=== PATIENT | male | born 1955 | race Caucasian/White ===

== ENCOUNTER 2021-08-25 17:17 | Inpatient (IN) ==
[2021-08-25] MEDS ORDERED: HEPARIN SODIUM INJ 5000 UNITS IVP ONE (19:07)
[2021-08-25] MEDS: HEPARIN SODIUM IN D5W 25,000 UNITS/500 ML BAG IV PRN (19:29)
[2021-08-25 19:55] LABS: BASOPHILS # (AUTO) 0.1 X10^3/uL (0.0-0.1); BASOPHILS % (AUTO) 0.7 % (0.2-1.0); EOSINOPHILS # (AUTO) 0.3 x10^3/uL (0.0-0.2); EOSINOPHILS % (AUTO) 2.9 % (0.9-2.9); HEMATOCRIT 40.4 % (42.0-54.0); HEMOGLOBIN 13.8 g/dL (13.5-18.0); LYMPHOCYTES # (AUTO) 2.1 X10^3/uL (1.3-2.9); LYMPHOCYTES % (AUTO) 23.4 % (21.0-51.0); MEAN CORPUSCULAR HEMOGLOBIN 28.8 pg (27.0-34.0); MEAN CORPUSCULAR HGB CONC 34.1 g/dL (33.0-35.0); MEAN CORPUSCULAR VOLUME 84.3 fL (80.0-100.0); MEAN PLATELET VOLUME 7.6 fL (7.4-11.0); MONOCYTES # (AUTO) 0.6 x10^3/uL (0.3-0.8); MONOCYTES % (AUTO) 6.4 % (0.0-13.0); NEUTROPHILS # (AUTO) 5.8 x10^3/uL (2.2-4.8); NEUTROPHILS % (AUTO) 66.6 % (42.0-75.0); RED BLOOD COUNT 4.79 X10^6/uL (4.7-6.0); RED CELL DISTRIBUTION WIDTH 13.8 % (11.6-16.5); WHITE BLOOD COUNT 8.8 X10^3/uL (3.6-10.0)
[2021-08-25 20:02] LABS: ALANINE AMINOTRANSFERASE 26 Units/L (12-78); ALBUMIN 3.2 g/dL (3.4-5.0); ALKALINE PHOSPHATASE 93 Units/L (46-116); ASPARTATE AMINO TRANSFERASE 21 Units/L (15-37); BLOOD UREA NITROGEN 20 mg/dL (7-18); CALCIUM 8.1 mg/dL (8.5-10.1); CARBON DIOXIDE 25.3 mmol/L (21-32); CHLORIDE 102 mmol/L (98-107); COR CA(FOR HYPOALB) 8.7 mg/dL (8.5-10.1); CREATININE 1.04 mg/dL (0.70-1.30); SODIUM 136 mmol/L (136-145); TOTAL PROTEIN 7.2 g/dL (6.4-8.2); eGFR NON BLACK RACES > 60 (>60)
[2021-08-25 22:09] VITALS: BMI 36.6
[2021-08-26 05:55] LABS: BASOPHILS % (AUTO) 0.7 % (0.2-1.0); EOSINOPHILS # (AUTO) 0.3 x10^3/uL (0.0-0.2); EOSINOPHILS % (AUTO) 4.8 % (0.9-2.9); HEMATOCRIT 40.9 % (42.0-54.0); HEMOGLOBIN 13.7 g/dL (13.5-18.0); LYMPHOCYTES % (AUTO) 31.5 % (21.0-51.0); MEAN CORPUSCULAR HEMOGLOBIN 28.3 pg (27.0-34.0); MEAN CORPUSCULAR HGB CONC 33.5 g/dL (33.0-35.0); MEAN CORPUSCULAR VOLUME 84.7 fL (80.0-100.0); MEAN PLATELET VOLUME 7.5 fL (7.4-11.0); MONOCYTES # (AUTO) 0.5 x10^3/uL (0.3-0.8); MONOCYTES % (AUTO) 7.8 % (0.0-13.0); NEUTROPHILS # (AUTO) 3.6 x10^3/uL (2.2-4.8); NEUTROPHILS % (AUTO) 55.2 % (42.0-75.0); RED BLOOD COUNT 4.83 X10^6/uL (4.7-6.0); RED CELL DISTRIBUTION WIDTH 13.8 % (11.6-16.5); WHITE BLOOD COUNT 6.5 X10^3/uL (3.6-10.0)
[2021-08-26 06:08] LABS: ALANINE AMINOTRANSFERASE 22 Units/L (12-78); ALBUMIN 2.9 g/dL (3.4-5.0); ALKALINE PHOSPHATASE 88 Units/L (46-116); ASPARTATE AMINO TRANSFERASE 17 Units/L (15-37); BLOOD UREA NITROGEN 19 mg/dL (7-18); CARBON DIOXIDE 26.2 mmol/L (21-32); CHLORIDE 103 mmol/L (98-107); COR CA(FOR HYPOALB) 8.9 mg/dL (8.5-10.1); COR NA(FOR HYPERGLY) 138 mmol/L (136-145); CREATININE 0.94 mg/dL (0.70-1.30); SODIUM 137 mmol/L (136-145); TOTAL PROTEIN 6.8 g/dL (6.4-8.2); eGFR NON BLACK RACES > 60 (>60)
[2021-08-26] MEDS ORDERED: HEPARIN SODIUM INJ 5000 UNITS IVP ONE (08:54)
--- NOTE | 2021-08-26 11:45 | DR.H&P ---
H&P - History & Physical for Day of: H&P Date: 08/25/21 - Chief Complaint Chief Complaint: RIGHT KNEE SWELLING, SHORTNESS OF BREATH, CHRONIC COUGH - History of Present Illness History of Present Illness: IS A 66 YEAR OLD PATIENT OF OURS. HE PRESENTED TO THE OFFICE WITH COMPLAINTS OF RIGHT LOWER EXTREMITY SWELLING. HE ALSO COMPLAINED OF SHORTNESS OF BREATH AND CHRONIC COUGH. EXAMINATION REVEALED ERYTHEMA AND NON-PITTING EDEMA OF THE RIGHT LEG, FROM THE KNEE TO THE ANKLE. PATIENT DENIES PAIN TO LEG OR CHEST. PMH INCLUDES: GLAUCOMA, HTN, PE, ARTHRITIS, RIGHT KNEE REPLACEMENT. HE WAS SENT FOR AN OUTPATIENT RIGHT LOWER EXTREMITY VENOUS DOPPLER. IT REVEALED: EXAM POSITIVE FOR DEEP VENOUS THROMBOSIS INVOLVING THE SUPERFICIAL FEMORAL, POPLITEAL, AND POSTERIOR TIBIAL VEINS ON THE RIGHT. A CHEST CTA WAS ALSO OBTAINED AND REVEALED: LARGE PULMONARY EMBOLUS WITHIN THE DISTAL RIGHT MAIN PULMONARY ARTERIES. OF THE RIGHT UPPER, RIGHT MIDDLE, AND RIGHT LOWER LOBES. SEGMENTAL AND SUBSEGMENTAL EMBOLI ARE SEEN WITHIN THE LEFT UPPER LOBE AND THE LEFT LOWER LOBE. WE ADMITTED PATIENT TO THE HOSPITAL FOR FURTHER EVALUATION AND TREATMENT. HE WAS STARTED ON A HEPARIN DRIP. WE WILL OBTAIN AN ECHOCARDIOGRAM. WE WILL THEN CONSULT SYSTEMS ANALYST AT [facility] FOR FURTHER TREATMENT PLANS AND RECOMMENDATIONS. TIME SPENT ON CLINICAL ASSESSMENT, REVIEWING LABS AND IMAGING, DECISION MAKING, AND DOCUMENTATION GREATER THAN 75 MINUTES. - Past Medical History Past Medical History: Arthritis, Hypertension Additional Medical History: GLAUCOMA, PE - Past Surgical History Surgical History: Joint Replacement, Ortho Surgery Additional Surgical History: RIGHT KNEE REPLACEMENT - Family History Family Medical History: Cancer, Hypertension - Social History Alcohol Use: None Drug Use: None - Medications Home Medications: No Known Drug Allergies [NKDA] Allergy (Verified 08/25/21 18:59) CONTINUE taking the following medications apixaban [Eliquis] 10 mg PO BID 08/25/21 [History] fosinopril 20 mg PO BID 08/25/21 [History] hydrochlorothiazide 25 mg PO QAM 08/25/21 [History] travoprost 1 drp OPHTHALMIC (EYE) QHS 08/25/21 [History] - Review of Systems Constitutional: No Symptoms Reported Eyes: No Symptoms Reported ENT: No Symptoms Reported Respiratory: Cough, Shortness of Breath Cardiovascular: No Symptoms Reported Gastrointestinal: No Symptoms Reported Genitourinary: No Symptoms Reported Musculoskeletal: See HPI Skin: Other (RIGHT LOWER EXTREMITY REDNESS AND SWELLING ) Neurological: No Symptoms Reported - Physical Exam Vital Signs: Temperature 97.7 F Pulse Rate 67 Respiratory Rate 24 Blood Pressure 155/78 O2 Sat by Pulse Oximetry 98 Oriented: Normal Eyes: Normal Ear: Normal Nose: Normal Throat: Normal Respiratory: Diminished Throughout Cardiovascular: Normal : Normal Auscultation: Bowel Sounds: Normal Palpation: Normal Tenderness: Normal Skin: Red (RIGHT LOWER EXTREMITY ), Tender, Hot Musculoskeletal: Right, Leg, Swelling, Tender Psychiatric: Normal Mood Description: Calm Affect: Normal Speech Pattern: Clear - Assessment/Plan (1) Right leg DVT Qualifiers: Affected thrombotic vein of extremity: other lower extremity vein Status: Acute Plan: ADMIT, HEPARIN DRIP (2) Multiple pulmonary emboli Status: Acute Plan: OBTAIN ECHO - Allergies Allergies/Adverse Reactions: Allergies Allergy/AdvReac Type Severity Reaction Status Date / Time No Known Drug Allergies Allergy Verified 08/25/21 18:59 [NKDA]
[2021-08-26] MEDS: HEPARIN SODIUM IN D5W 25,000 UNITS/500 ML BAG IV PRN (14:08)
[2021-08-27] MEDS: HEPARIN SODIUM IN D5W 25,000 UNITS/500 ML BAG IV PRN (04:13)
[2021-08-27 06:34] LABS: BASOPHILS % (AUTO) 0.7 % (0.2-1.0); EOSINOPHILS # (AUTO) 0.3 x10^3/uL (0.0-0.2); EOSINOPHILS % (AUTO) 4.6 % (0.9-2.9); HEMATOCRIT 42.2 % (42.0-54.0); HEMOGLOBIN 13.9 g/dL (13.5-18.0); LYMPHOCYTES # (AUTO) 2.2 X10^3/uL (1.3-2.9); LYMPHOCYTES % (AUTO) 32.4 % (21.0-51.0); MEAN CORPUSCULAR HEMOGLOBIN 28.1 pg (27.0-34.0); MEAN CORPUSCULAR HGB CONC 32.8 g/dL (33.0-35.0); MEAN CORPUSCULAR VOLUME 85.5 fL (80.0-100.0); MEAN PLATELET VOLUME 7.7 fL (7.4-11.0); MONOCYTES # (AUTO) 0.5 x10^3/uL (0.3-0.8); MONOCYTES % (AUTO) 7.9 % (0.0-13.0); NEUTROPHILS # (AUTO) 3.8 x10^3/uL (2.2-4.8); NEUTROPHILS % (AUTO) 54.4 % (42.0-75.0); RED BLOOD COUNT 4.94 X10^6/uL (4.7-6.0); WHITE BLOOD COUNT 6.9 X10^3/uL (3.6-10.0)
[2021-08-27 07:06] LABS: ALANINE AMINOTRANSFERASE 23 Units/L (12-78); ALBUMIN 2.9 g/dL (3.4-5.0); ALKALINE PHOSPHATASE 92 Units/L (46-116); ASPARTATE AMINO TRANSFERASE 22 Units/L (15-37); BLOOD UREA NITROGEN 17 mg/dL (7-18); CALCIUM 8.3 mg/dL (8.5-10.1); CHLORIDE 104 mmol/L (98-107); COR CA(FOR HYPOALB) 9.2 mg/dL (8.5-10.1); COR NA(FOR HYPERGLY) 139 mmol/L (136-145); CREATININE 1.03 mg/dL (0.70-1.30); SODIUM 138 mmol/L (136-145); TOTAL PROTEIN 6.7 g/dL (6.4-8.2); eGFR NON BLACK RACES > 60 (>60)
[2021-08-27] MEDS ORDERED: FOSINOPRIL 20 MG PO SCH (09:00)
[2021-08-27] MEDS ORDERED: HYDROCHLOROTHIAZIDE 25 MG TAB PO SCH (09:00)
[2021-08-27] MEDS: TRAVATAN Z OP SCH ×2 (10:00→20:45)
[2021-08-27] MEDS: ELIQUIS PO SCH ×2 (11:28→20:45)
--- NOTE | 2021-08-27 13:15 | PCM.PROG ---
Progress Note - Progress Note for Day of Date of Exam: 08/27/21 - Subjective Subjective: WAS ADMITTED FOR TREATMENT OF RIGHT LEG DVT AND MULTIPE PEs IN BILATERAL LUNGS. TODAY, HE IS ALERT AND ORIENTED, SITTING UP IN BED ON MORNING ROUNDS. HE DENIES SHORTNESS OF BREATH OR PAIN UPON MORNING ROUNDS. HE DENIES ANY CURRENT COMPLAINTS AND HAS HAD AN UNEVENTFUL NIGHT. HE REMAINS IN THE INTENSIVE CARE UNIT ON A HEPARIN DRIP. ON EXAMINATION, HEART IS REGULAR IN RATE AND RHYTHM. BILATERAL LUNGS NOTED WITH DIMINISHED LUNG SOUNDS THROUGHOUT. ABDOMEN IS ROUND, SOFT, AND NON-TENDER WITH NORMAL BOWEL SOUNDS NOTED IN ALL QUADRANTS. RLE NOTED WITH ERYTHEMA AND NON-PITTING EDEMA. HIS VITALS THIS MORNING ARE: 97.7-63-13-94%-144/81. LABS WERE OBTAINED. WBC 6.9, HGB 13.9, HCT 42.2, SODIUM 138, POTASSIUM 3.8, CHLORIDE 104, BUN 17, CREATININE 1.03, GLUCOSE 138, CALCIUM 8.3, AST 22, ALT 23, ALK PHOS 6.7, TOTAL PROTEIN 6.7, ALBUMIN 2.9. ECHO WAS OBTAINED YESTERDAY AND REVEALED AN EJECTION FRACTION OF 55%, PVSP 35mmHg. SCLEROSIS OF AORTIC VALVE. MILD PULMONARY HYPERTENSION. OTHERWISE NORMAL. HE IS CURRENTLY ON A HEPARIN DRIP, BUT WE WILL TRANSITION TO ELIQUIS 10MG PO BID TODAY AND DISCONTINUE HEPARIN. WE CONSULTED WITH , PULMONOLIGIST WITH /[facility]. HE IS IN AGREEMENT WITH PLANS AND HAS NO OTHER RECOMMENDATIONS AT THIS TIME. OTHERWISE, WE WILL FOLLOW UP WITH AM LABS AND CONTINUE TO MONITOR. TIME SPENT ON CLINICAL ASSESSMENT, REVIEWING LABS AND IMAGING, DECISION MAKING, AND DOCUMENTATION GREATER THAN 45 MINUTES. - Past Medical Family Social History Past Med/Fam/Surg Hx: No changes since H&P Allergies: Allergies No Known Drug Allergies [NKDA] Allergy (Verified 08/25/21 18:59) - Review of Systems ROS: No change since H&P - Vital Signs and I&O's Vital Signs: Temperature 97.7 F Pulse Rate 65 Respiratory Rate 12 Blood Pressure 122/69 O2 Sat by Pulse Oximetry 95 Intake and Output: Intake & Output 08/25/21 08/26/21 08/27/21 08/28/21 11:59 11:59 11:59 11:59 Intake Total 915 / 915 253 / 2530 Balance 353 / 2530 - Physical Exam Oriented: Normal Eyes: Normal Ear: Normal Nose: Normal Throat: Normal Cardiovascular: Normal : Normal Auscultation: Bowel Sounds: Normal Palpation: Normal Tenderness: Normal Skin: Red (RIGHT LOWER EXTREMITY ), Tender, Hot Musculoskeletal: Right, Leg, Swelling, Tender Psychiatric: Normal Mood Description: Calm Affect: Normal Speech Pattern: Clear, Appropriate - Laboratory and Diagnostics Result Diagrams: 08/27/21 06:09 08/27/21 06:09 Labs: Laboratory WBC 6.9 X10^3/uL (3.6-10.0) 08/27/21 06:09 RBC 4.94 X10^6/uL (4.7-6.0) 08/27/21 06:09 Hgb 13.9 g/dL (13.5-18.0) 08/27/21 06:09 Hct 42.2 % (42.0-54.0) 08/27/21 06:09 MCV 85.5 fL (80.0-100.0) 08/27/21 06:09 MCH 28.1 pg (27.0-34.0) 08/27/21 06:09 MCHC 32.8 g/dL (33.0-35.0) L 08/27/21 06:09 RDW 14.0 % (11.6-16.5) 08/27/21 06:09 Plt Count 249 X10^3/uL (150.0-450.0) 08/27/21 06:09 MPV 7.7 fL (7.4-11.0) 08/27/21 06:09 Neut % (Auto) 54.4 % (42.0-75.0) 08/27/21 06:09 Lymph % (Auto) 32.4 % (21.0-51.0) 08/27/21 06:09 [place] % (Auto) 7.9 % (0.0-13.0) 08/27/21 06:09 Eos % (Auto) 4.6 % (0.9-2.9) H 08/27/21 06:09 Baso % (Auto) 0.7 % (0.2-1.0) 08/27/21 06:09 Neut # (Auto) 3.8 x10^3/uL (2.2-4.8) 08/27/21 06:09 Lymph # (Auto) 2.2 X10^3/uL (1.3-2.9) 08/27/21 06:09 [place] # (Auto) 0.5 x10^3/uL (0.3-0.8) 08/27/21 06:09 Eos # (Auto) 0.3 x10^3/uL (0.0-0.2) H 08/27/21 06:09 Baso # (Auto) 0.0 X10^3/uL (0.0-0.1) 08/27/21 06:09 Absolute Nucleated RBC 0.0 /100WBC 08/27/21 06:09 PT 16.4 SECONDS (11.8-14.3) 08/25/21 19:29 INR Target Range - 08/25/21 19:29 INR 1.39 (0.8-1.3) H 08/25/21 19:29 APTT 90.7 SECONDS (22.9-36.5) H 08/27/21 08:48 PTT Comment - 08/27/21 08:48 Sodium 138 mmol/L (136-145) 08/27/21 06:09 Corrected Sodium 139 mmol/L (136-145) 08/27/21 06:09 Potassium 3.8 mmol/L (3.5-5.1) 08/27/21 06:09 Chloride 104 mmol/L (98-107) 08/27/21 06:09 Carbon Dioxide 28.0 mmol/L (21-32) 08/27/21 06:09 BUN 17 mg/dL (7-18) 08/27/21 06:09 Creatinine 1.03 mg/dL (0.70-1.30) 08/27/21 06:09 Est GFR (MDRD) Af Amer > 60 (>60) 08/27/21 06:09 Est GFR (MDRD) Non-Af > 60 (>60) 08/27/21 06:09 Glucose 138 mg/dL (65-99) H 08/27/21 06:09 Calcium 8.3 mg/dL (8.5-10.1) L 08/27/21 06:09 Corrected Calcium 9.2 mg/dL (8.5-10.1) 08/27/21 06:09 Magnesium 1.9 mg/dL (1.7-2.9) 08/26/21 05:35 Total Bilirubin 0.70 mg/dL (0.2-1.0) 08/27/21 06:09 AST 22 Units/L (15-37) 08/27/21 06:09 ALT 23 Units/L (12-78) 08/27/21 06:09 Alkaline Phosphatase 92 Units/L (46-116) 08/27/21 06:09 Total Protein 6.7 g/dL (6.4-8.2) 08/27/21 06:09 Albumin 2.9 g/dL (3.4-5.0) L 08/27/21 06:09 Globulin 3.8 g/dL (2.5-4.5) 08/27/21 06:09 Albumin/Globulin Ratio 0.8 Ratio (1.1-2.1) L 08/27/21 06:09 SARS CoV-2 RNA Rapid JAYNE Negative (NEGATIVE) 08/25/21 18:16 - Plan (1) Right leg DVT Status: Acute Qualifiers: Affected thrombotic vein of extremity: other lower extremity vein Plan: ELIQUIS 10MG PO BID, CONTINUE TO MONITOR (2) Multiple pulmonary emboli Status: Acute
--- NOTE | 2021-08-27 14:51 | DR.CONSULT ---
CONSULT Consultation for Day of: Date: 08/27/21 Chief Complaint Chief Complaint: Called for pulmonary emboli. Patient on anticoagulation. Possible need for further interventions. Allergies Allergies Allergy/AdvReac Type Severity Reaction Status Date / Time No Known Drug Allergies Allergy Verified 08/25/21 18:59 [NKDA] History of Present Illness History of Present Illness: Mr. Kee was admitted for treatment of right leg DVT and multiple PEs and bilateral lungs. He is reported to be alert and oriented without shortness of breath or pain. No tachycardia or tachypnea. He is noted to have slightly diminished pulmonary sounds. Past Medical History Past Medical History: Arthritis and Hypertension Additional Medical History: GLAUCOMA, PE Past Surgical History Surgical History: Joint Replacement and Ortho Surgery Additional Surgical History: RIGHT KNEE REPLACEMENT Family History Family Medical History: Cancer and Hypertension Social History Alcohol Use: None Drug Use: None Medications Home Medications: No Known Drug Allergies [NKDA] Allergy (Verified 08/25/21 18:59) CONTINUE taking the following medications apixaban [Eliquis] 10 mg PO BID 08/25/21 [History] fosinopril 20 mg PO BID 08/25/21 [History] hydrochlorothiazide 25 mg PO QAM 08/25/21 [History] travoprost 1 drp OPHTHALMIC (EYE) QHS 08/25/21 [History] Physical Exam Vital Signs: Temperature 97.7 F Pulse Rate 71 Respiratory Rate 25 Blood Pressure 143/77 O2 Sat by Pulse Oximetry 95 Plan (1) Right leg DVT: Status: Acute Qualifiers: Affected thrombotic vein of extremity: other lower extremity vein Plan: On anticoagulation. (2) Multiple pulmonary emboli: Status: Acute Plan: Chart reviewed. CT chest noted with multiple pulmonary emboli. Echocardiogram results were noted with normal RV and no signs of right heart strain. Recommend continued anticoagulation and follow-up outpatient. No clear indication for thrombectomy or further intervention at this point. Please call back for any other questions or concerns.
[2021-08-27] MEDS ORDERED: RESTORIL CAP 15 MG PO PRN (21:18)
[2021-08-28 06:13] LABS: BASOPHILS # (AUTO) 0.1 X10^3/uL (0.0-0.1); BASOPHILS % (AUTO) 0.7 % (0.2-1.0); EOSINOPHILS # (AUTO) 0.3 x10^3/uL (0.0-0.2); EOSINOPHILS % (AUTO) 4.9 % (0.9-2.9); HEMATOCRIT 41.2 % (42.0-54.0); HEMOGLOBIN 13.7 g/dL (13.5-18.0); LYMPHOCYTES # (AUTO) 1.8 X10^3/uL (1.3-2.9); LYMPHOCYTES % (AUTO) 26.4 % (21.0-51.0); MEAN CORPUSCULAR HEMOGLOBIN 28.7 pg (27.0-34.0); MEAN CORPUSCULAR HGB CONC 33.4 g/dL (33.0-35.0); MEAN PLATELET VOLUME 7.5 fL (7.4-11.0); MONOCYTES # (AUTO) 0.5 x10^3/uL (0.3-0.8); MONOCYTES % (AUTO) 7.4 % (0.0-13.0); NEUTROPHILS # (AUTO) 4.2 x10^3/uL (2.2-4.8); NEUTROPHILS % (AUTO) 60.6 % (42.0-75.0); RED BLOOD COUNT 4.79 X10^6/uL (4.7-6.0); RED CELL DISTRIBUTION WIDTH 14.1 % (11.6-16.5)
[2021-08-28 06:35] LABS: ALANINE AMINOTRANSFERASE 28 Units/L (12-78); ALBUMIN 2.9 g/dL (3.4-5.0); ALKALINE PHOSPHATASE 86 Units/L (46-116); ASPARTATE AMINO TRANSFERASE 25 Units/L (15-37); BLOOD UREA NITROGEN 17 mg/dL (7-18); CALCIUM 8.2 mg/dL (8.5-10.1); CARBON DIOXIDE 28.6 mmol/L (21-32); CHLORIDE 108 mmol/L (98-107); COR CA(FOR HYPOALB) 9.1 mg/dL (8.5-10.1); COR NA(FOR HYPERGLY) 144 mmol/L (136-145); CREATININE 0.99 mg/dL (0.70-1.30); SODIUM 143 mmol/L (136-145); TOTAL PROTEIN 6.6 g/dL (6.4-8.2); eGFR NON BLACK RACES > 60 (>60)
[2021-08-28] MEDS: ELIQUIS PO SCH (08:52)
[2021-08-28 10:41] VITALS: BP 138/75
[2021-09-03] MEDS ORDERED: ELIQUIS PO SCH (09:00)
== END 2021-08-28 10:55 | disposition home or self-care (01) | DRG 299 ==
LOC: ICU 17:21
PROVIDERS: ADMIT Internal Medicine; ATTEND Internal Medicine
DX: R60.0 Localized edema; R06.02 Shortness of breath; Z79.01 Long term (current) use of anticoagulants; I10 Essential (primary) hypertension; I82.4Z1 Acute embolism and thrombosis of unspecified deep veins of right distal lower extremity; Z20.822 Contact with and (suspected) exposure to COVID-19; I26.94 Multiple subsegmental thrombotic pulmonary emboli without acute cor pulmonale

== ENCOUNTER 2022-09-28 09:30 | Observation (INO) ==
[2022-09-28] MEDS ORDERED: NS 500 ML IV 500 ML IV ONE (10:50)
[2022-09-28] MEDS: TORADOL 30 MG VIAL IVP PRN ×2 (11:24→22:25)
[2022-09-28 11:34] LABS: BASOPHILS % (AUTO) 0.3 % (0.2-1.0); EOSINOPHILS # (AUTO) 0.1 x10^3/uL (0.0-0.2); EOSINOPHILS % (AUTO) 0.5 % (0.9-2.9); HEMATOCRIT 45.2 % (42.0-54.0); HEMOGLOBIN 15.5 g/dL (13.5-18.0); LYMPHOCYTES # (AUTO) 1.2 X10^3/uL (1.3-2.9); LYMPHOCYTES % (AUTO) 8.8 % (21.0-51.0); MEAN CORPUSCULAR HEMOGLOBIN 29.3 pg (27.0-34.0); MEAN CORPUSCULAR HGB CONC 34.2 g/dL (33.0-35.0); MEAN CORPUSCULAR VOLUME 85.6 fL (80.0-100.0); MEAN PLATELET VOLUME 7.7 fL (7.4-11.0); MONOCYTES # (AUTO) 1.2 x10^3/uL (0.3-0.8); NEUTROPHILS # (AUTO) 10.9 x10^3/uL (2.2-4.8); NEUTROPHILS % (AUTO) 81.4 % (42.0-75.0); PLATELET COUNT 225 X10^3/uL (150.0-450.0); RED BLOOD COUNT 5.28 X10^6/uL (4.7-6.0); RED CELL DISTRIBUTION WIDTH 13.4 % (11.6-16.5); WHITE BLOOD COUNT 13.4 X10^3/uL (3.6-10.0)
[2022-09-28 11:50] LABS: ALANINE AMINOTRANSFERASE 17 Units/L (12-78); ALBUMIN 3.2 g/dL (3.4-5.0); ALKALINE PHOSPHATASE 87 Units/L (46-116); AMYLASE 24 Units/L (25-115); ASPARTATE AMINO TRANSFERASE 16 Units/L (15-37); BLOOD UREA NITROGEN 17 mg/dL (7-18); CALCIUM 9.1 mg/dL (8.5-10.1); CARBON DIOXIDE 27.7 mmol/L (21-32); CHLORIDE 99 mmol/L (98-107); COR CA(FOR HYPOALB) 9.7 mg/dL (8.5-10.1); COR NA(FOR HYPERGLY) 136 mmol/L (136-145); CREATININE 1.01 mg/dL (0.70-1.30); GLUCOSE 132 mg/dL (65-99); LIPASE 40 Units/L (73-393); POTASSIUM 3.5 mmol/L (3.5-5.1); SODIUM 135 mmol/L (136-145); TOTAL PROTEIN 7.5 g/dL (6.4-8.2); eGFR NON BLACK RACES > 60 (>60)
--- NOTE | 2022-09-28 12:10 | CT ---
HISTORYAbdominal pain, nausea, feverSTUDYCT abdomen pelvis without contrastTechnique: Axial noncontrast images with coronal and sagittal reformats. Dose reduction procedures were used with mA/kv adjusted for body size. This examination is limited due to the lack of intravenous contrast. The examination was performed in this manner at the sole discretion of the ordering caregiver.[id number] ng bases are clear with the exception of subsegmental atelectasis in the anterior right lung base. The liver, spleen, adrenal glands, and pancreas appear within normal limits to the limitations of an unenhanced examination. No opaque stones are identified in a slightly hyperdense gallbladder. If gallbladder disease is a strong clinical consideration sonography is recommended in order to evaluate for nonopaque calculi. The kidneys are unobstructed and without stones. No ureteral calculi are identified. Mild calcific atherosclerotic changes present in a nondilated abdominal aorta. The appendix is normal. No intraperitoneal or retroperitoneal lymphadenopathy of significance is identified. There are no findings suggestive of enteritis, colitis, or diverticulitis. Examination of the pelvis demonstrated no evidence for pelvic masses, pelvic fluid, or pelvic lymphadenopathy. No bladder abnormality is identified. There is a fat containing left inguinal hernia present. No lytic or blastic skeletal lesions of significance are identified.IMPRESSIONNo definite acute intra-abdominal or intrapelvic abnormality identified but only to the limitations of an examination performed without intravenous and without oral contrast.Electronically signed by: ROXANNE PARSON (September 28, 2022 12:09:18)
[2022-09-28] MEDS: NS 1,000 ML IV 1,000 ML IV SCH (12:41)
[2022-09-28 14:24] LABS: BILIRUBIN,URINE NEGATIVE (NEGATIVE); BLOOD/HEMOGLOBIN,URINE 2+ (NEGATIVE); GLUCOSE, URINE NEGATIVE (NEGATIVE); KETONES,URINE 3+ (NEGATIVE); LEUKOCYTE ESTERASE ,URINE NEGATIVE (NEGATIVE); NITRITES,URINE NEGATIVE (NEGATIVE); PROTEIN,URINE 1+ (NEGATIVE); UROBILINOGEN,URINE NORMAL (NORMAL)
[2022-09-28 14:33] LABS: APPEARANCE,URINE MUCOID (CLEAR); COLOR,URINE DARK YELLOW (YELLOW)
[2022-09-28 14:34] LABS: BACTERIA,URINE TRACE /HPF (NEGATIVE); RBC,URINE 0-2 /HPF (0-3); SQUAMOUS EPITHELIAL CELL,UR RARE /HPF (NEGATIVE)
[2022-09-29] MEDS: NS 1,000 ML IV 1,000 ML IV SCH ×2 (01:48→15:38)
[2022-09-29 06:21] LABS: BASOPHILS # (AUTO) 0.1 X10^3/uL (0.0-0.1); BASOPHILS % (AUTO) 0.6 % (0.2-1.0); EOSINOPHILS # (AUTO) 0.7 x10^3/uL (0.0-0.2); HEMOGLOBIN 14.8 g/dL (13.5-18.0); LYMPHOCYTES # (AUTO) 1.5 X10^3/uL (1.3-2.9); LYMPHOCYTES % (AUTO) 13.4 % (21.0-51.0); MEAN CORPUSCULAR HEMOGLOBIN 29.4 pg (27.0-34.0); MEAN CORPUSCULAR HGB CONC 34.5 g/dL (33.0-35.0); MEAN CORPUSCULAR VOLUME 85.2 fL (80.0-100.0); MEAN PLATELET VOLUME 7.8 fL (7.4-11.0); MONOCYTES # (AUTO) 1.1 x10^3/uL (0.3-0.8); MONOCYTES % (AUTO) 9.6 % (0.0-13.0); NEUTROPHILS # (AUTO) 7.9 x10^3/uL (2.2-4.8); NEUTROPHILS % (AUTO) 70.4 % (42.0-75.0); PLATELET COUNT 211 X10^3/uL (150.0-450.0); RED BLOOD COUNT 5.04 X10^6/uL (4.7-6.0); RED CELL DISTRIBUTION WIDTH 13.7 % (11.6-16.5); WHITE BLOOD COUNT 11.2 X10^3/uL (3.6-10.0)
[2022-09-29 06:46] LABS: ALANINE AMINOTRANSFERASE 16 Units/L (12-78); ALBUMIN 2.7 g/dL (3.4-5.0); ALKALINE PHOSPHATASE 76 Units/L (46-116); ASPARTATE AMINO TRANSFERASE 16 Units/L (15-37); BLOOD UREA NITROGEN 22 mg/dL (7-18); CALCIUM 8.5 mg/dL (8.5-10.1); CARBON DIOXIDE 26.7 mmol/L (21-32); CHLORIDE 103 mmol/L (98-107); COR CA(FOR HYPOALB) 9.5 mg/dL (8.5-10.1); COR NA(FOR HYPERGLY) 139 mmol/L (136-145); CREATININE 0.94 mg/dL (0.70-1.30); GLUCOSE 111 mg/dL (65-99); POTASSIUM 3.2 mmol/L (3.5-5.1); SODIUM 139 mmol/L (136-145); TOTAL PROTEIN 6.7 g/dL (6.4-8.2); eGFR NON BLACK RACES > 60 (>60)
[2022-09-29] MEDS: TORADOL 30 MG VIAL IVP PRN ×2 (11:36→20:23)
--- NOTE | 2022-09-29 11:48 | DR.UPDATE ---
H&P Update H&P Reviewed: Yes Any changes to H&P?: Yes Changes noted:: WAS ADMITTED TO THE HOSPITAL FOR FURTHER TREATMENT AND EVALUATION OF ABDOMINAL PAIN AND NAUSEA/VOMITING. ON ADMISSION, HIS VITALS WERE 98.7-69-20-95%-149/69. LABS WERE OBTAINED. WBC 13.4, RBC 5.28, HGB 15.5, HCT 45.2, PLT COUNT 225, SODIUM 135, POTASSIUM 3.5, CHLORIDE 99, CARBON DIOXIDE 27.7, BUN 17, CREATININE 1.01, GLUCOSE 132, CALCIUM 9.1, TOTAL BILI 1.80, AST 16, ALT 17, ALK PHOS 87, TOTAL PROTEIN 7.5, ALBUMIN 3.2, AMYLASE 24, LIPASE 40. URINALYSIS WAS OBTAINED AND REVEALED 2+ BLOOD, OTHERWISE UNREMARKABLE. A URINE CULTURE WAS SET UP. AN ABDOMEN/PELVIS CT WITHOUT CONTRAST WAS OBTAINED TO RULE OUT A KIDNEY STONE AND OTHER ABNORMALITIES. IT REVEALED: Lung bases are clear with the exception of subsegmental atelectasis in the anterior right lung base. The liver, spleen, adrenal glands, and pancreas appear within normal limits to the limitations of an unenhanced examination. No opaque stones are identified in a slightly hyperdense gallbladder. If gallbladder disease is a strong clinical consideration sonography is recommended in order to evaluate for nonopaque calculi. The kidneys are unobstructed and without stones. No ureteral calculi are identified. Mild calcific atherosclerotic changes present in a nondilated abdominal aorta. The appendix is normal. No intraperitoneal or retroperitoneal lymphadenopathy of significance is identified. There are no findings suggestive of enteritis, colitis, or diverticulitis. Examination of the pelvis demonstrated no evidence for pelvic masses, pelvic fluid, or pelvic lymphadenopathy. No bladder abnormality is identified. There is a fat containing left inguinal hernia present. No lytic or blastic skeletal lesions of significance are identified. HE WAS STARTED ON NORMAL SALINE AT 75 ML/HR AND TORADOL 30MG IV BID PRN. WE WILL RESUME HIS HOME MEDICATIONS OF PANTOPRAZOLE, HCTZ, AND FOSINOPRIL. WE WILL OBTAIN A GALLBLADDER ULTRASOUND. OTHERWISE, WE WILL FOLLOW-UP WITH AM LABS AND CONTINUE TO MONITOR. TIME SPENT ON CLINICAL ASSESSMENT, REVIWING LABS AND IMAGING, DECISION MAKING, AND DOCUMENTATION GREATER THAN 75 MINUTES. Patient was examined?: Yes
[2022-09-29] MEDS ORDERED: ZESTRIL TAB 20 MG ONE (12:43)
[2022-09-29] MEDS: PROTONIX TAB 40 MG PO SCH ×2 (12:44→20:25)
[2022-09-29] MEDS: ZESTRIL TAB 20 MG PO SCH ×2 (12:45→20:26)
--- NOTE | 2022-09-29 16:32 | US ---
HISTORYRight upper quadrant painSTUDYGALL [id number]/2023TECHNIQUEMult iple cadena scale and color flow Doppler images of the right upper quadrant were obtained.FINDINGSThe liver is normal in size and increased in echotexture. No focal identifiable hepatic mass or intrahepatic biliary ductal dilatation.Stones and sludge in the gallbladder lumen. No gallbladder wall thickening or pericholecystic fluid. The sonographic Rosales's sign is reported as negative by the infectious diseases physician. The common bile duct is unremarkable measuring 0.4 cm.Limited visualized portions of the pancreas and IVC are unremarkable.The right kidney appears normal in size measuring up to 12.5 cm. No stones or hydronephrosis.IMPRESSIONStones and sludge throughout the gallbladder lumen without evidence of acute cholecystitis. Nuclear medicine HIDA scan could be obtained for further evaluation.Increased hepatic echotexture which may be seen with hepatocellular disease and/or steatosis.Electronically signed by: ROXANNE PARSON (September 29, 2022 16:15:12)
[2022-09-29] MEDS: TRAVATAN Z OP SCH (20:25)
[2022-09-30] MEDS: NS 1,000 ML IV 1,000 ML IV SCH ×3 (04:58→18:09)
[2022-09-30] MEDS: NORCO 7.5/325 MG TAB PO PRN ×2 (06:21→14:03)
[2022-09-30 06:52] LABS: BASOPHILS # (AUTO) 0.1 X10^3/uL (0.0-0.1); BASOPHILS % (AUTO) 0.5 % (0.2-1.0); EOSINOPHILS # (AUTO) 0.8 x10^3/uL (0.0-0.2); EOSINOPHILS % (AUTO) 6.6 % (0.9-2.9); HEMATOCRIT 40.6 % (42.0-54.0); LYMPHOCYTES # (AUTO) 1.3 X10^3/uL (1.3-2.9); LYMPHOCYTES % (AUTO) 11.2 % (21.0-51.0); MEAN CORPUSCULAR HEMOGLOBIN 29.5 pg (27.0-34.0); MEAN CORPUSCULAR HGB CONC 34.6 g/dL (33.0-35.0); MEAN CORPUSCULAR VOLUME 85.5 fL (80.0-100.0); MEAN PLATELET VOLUME 8.1 fL (7.4-11.0); MONOCYTES # (AUTO) 1.1 x10^3/uL (0.3-0.8); MONOCYTES % (AUTO) 9.3 % (0.0-13.0); NEUTROPHILS # (AUTO) 8.5 x10^3/uL (2.2-4.8); NEUTROPHILS % (AUTO) 72.4 % (42.0-75.0); PLATELET COUNT 225 X10^3/uL (150.0-450.0); RED BLOOD COUNT 4.74 X10^6/uL (4.7-6.0); RED CELL DISTRIBUTION WIDTH 13.6 % (11.6-16.5); WHITE BLOOD COUNT 11.7 X10^3/uL (3.6-10.0)
[2022-09-30 07:02] LABS: ALANINE AMINOTRANSFERASE 19 Units/L (12-78); ALBUMIN 2.5 g/dL (3.4-5.0); ALKALINE PHOSPHATASE 67 Units/L (46-116); ASPARTATE AMINO TRANSFERASE 16 Units/L (15-37); BLOOD UREA NITROGEN 18 mg/dL (7-18); CALCIUM 7.8 mg/dL (8.5-10.1); CARBON DIOXIDE 25.7 mmol/L (21-32); CHLORIDE 104 mmol/L (98-107); COR NA(FOR HYPERGLY) 141 mmol/L (136-145); CREATININE 0.89 mg/dL (0.70-1.30); GLUCOSE 126 mg/dL (65-99); POTASSIUM 3.1 mmol/L (3.5-5.1); SODIUM 140 mmol/L (136-145); TOTAL PROTEIN 6.4 g/dL (6.4-8.2); eGFR NON BLACK RACES > 60 (>60)
[2022-09-30] MEDS: ZESTRIL TAB 20 MG PO SCH ×2 (09:58→22:42)
[2022-09-30] MEDS: HYDROCHLOROTHIAZIDE 25 MG TAB PO SCH (09:58)
[2022-09-30] MEDS ORDERED: MICRO K EXTEN CAP 10 MEQ PO PRN (10:00)
[2022-09-30] MEDS ORDERED: K-RIDER 10 MEQ/NS 100 ML 10 MEQ/100 ML BAG IV PRN (10:00)
[2022-09-30] MEDS ORDERED: KLOR-CON PO PRN (10:00)
[2022-09-30] MEDS ORDERED: POTASSIUM CHLORIDE LIQ 20 MEQ UDC PO PRN (10:00)
[2022-09-30] MEDS ORDERED: POTASSIUM CHL 60 MEQ/NS 0.45% 500 ML IV PRN (10:00)
[2022-09-30] MEDS ORDERED: MAGNESIUM SULFATE 1 GRAM/100 mL PREMIX 1 G/100 ML BAG IV PRN (10:00)
[2022-09-30] MEDS ORDERED: K-DUR TAB 20 MEQ PO PRN (10:00)
[2022-09-30] MEDS ORDERED: POTASSIUM CHL 40 MEQ/NS 0.45% 500 ML IV PRN (10:00)
[2022-09-30] MEDS: PROTONIX TAB 40 MG PO SCH ×2 (14:02→22:42)
--- NOTE | 2022-09-30 14:26 | NM ---
HISTORYABDOMINAL PAIN, FEVER, NAUSEA.STUDYHIDA/HEPATOBILIARY SCAN W/O EFCOMPARISONCT abdomen and pelvis 04/02/20229617UCHSTRTZT3.5 mCi Tc-99m mebrofenin were injected intravenously. Planar images were obtained for 60 minutes.FINDINGSThere was prompt uptake and excretion by the liver. Activity is seen in the small bowel at 30 minutes with no evidence of common bile duct obstruction.Gallbladder was not identified at 1 hour.But the patient discontinued the examination after the 60 minutes image. He was unable to continue due to the extreme pain he reported.Nonvisualization of the gallbladder at 60 minutes can be because of acute or chronic cholecystitis.IMPRESSION1. Limited exam2. Nonvisualization of the gallbladder at 60 minutes; this can be seen with acute or chronic cholecystitisElectronically signed by: Eric Kee (September 30, 2022 14:25:10)
--- NOTE | 2022-09-30 15:58 | EKG ---
Test Reason : surgery clearance Blood Pressure : */* mmHG Vent. Rate : 67 BPM Atrial Rate : 67 BPM P-R Int : 158 ms QRS Dur : 92 ms QT Int : 428 ms P-R-T Axes : 77 45 34 degrees QTc Int : 452 ms Normal sinus rhythm Normal ECG No previous ECGs available Confirmed by Yoel Short ([id number]) on 10/02/2022 10:20:40 AM Referred By: Confirmed By: Yoel Short
[2022-09-30] MEDS ORDERED: NS 1,000 ML IV 1,000 ML ONE (18:59)
[2022-09-30] MEDS ORDERED: ANCEF VIAL 1 GRAM ONE ×2 (18:59→19:00)
[2022-09-30] MEDS ORDERED: NS 100 ML IV 100 ML ONE (18:59)
[2022-09-30] MEDS ORDERED: BACTROBAN TOPICAL OINT ONE (19:01)
[2022-09-30] MEDS ORDERED: DILAUDID INJ ONE (19:08)
[2022-09-30] MEDS ORDERED: ZOFRAN INJ 4 MG VIAL ONE (19:20)
[2022-09-30] MEDS ORDERED: PEPCID 20 MG VIAL ONE (19:20)
[2022-09-30] MEDS ORDERED: MAGNESIUM SULFATE 50% INJ VIAL ONE (19:20)
[2022-09-30] MEDS ORDERED: ZEMURON 100 MG VIAL ONE (19:20)
[2022-09-30] MEDS ORDERED: QUELICIN (OR ANECTINE) ONE (19:20)
[2022-09-30] MEDS ORDERED: DECADRON INJ ONE (19:20)
[2022-09-30] MEDS ORDERED: DIPRIVAN VIAL 20 ML ONE (19:20)
[2022-09-30] MEDS ORDERED: SUPRANE ONE (19:21)
[2022-09-30] MEDS ORDERED: XYLOCAINE 2 % (PLAIN) ONE (19:21)
[2022-09-30] MEDS ORDERED: BRIDION ONE (20:24)
[2022-09-30] MEDS ORDERED: DILAUDID INJ IVP PRN ×2 (21:27→21:31)
[2022-09-30] MEDS ORDERED: REGLAN INJ 10 MG VIAL IVP PRN (21:27)
[2022-09-30] MEDS ORDERED: ZOFRAN INJ 4 MG VIAL IVP PRN (21:27)
[2022-09-30] MEDS ORDERED: BARHEMSYS INJ IVP PRN (21:27)
[2022-09-30] MEDS ORDERED: BENADRYL INJ 50 MG VIAL IVP PRN (21:27)
[2022-09-30] MEDS ORDERED: ANCEF VIAL 1 GRAM IVP SCH (22:00)
[2022-09-30] MEDS ORDERED: ZESTRIL TAB 20 MG ONE (22:20)
[2022-09-30] MEDS: TRAVATAN Z OP SCH (22:42)
[2022-09-30] MEDS: ZOSYN VIAL 3.375 GRAMS 3.375 G in NS 100 ML IV 100 ML IV SCH (22:42)
[2022-10-01] MEDS: NS 1,000 ML IV 1,000 ML IV SCH (05:23)
[2022-10-01] MEDS: ZOSYN VIAL 3.375 GRAMS 3.375 G in NS 100 ML IV 100 ML IV SCH (05:23)
[2022-10-01] MEDS ORDERED: ANCEF VIAL 1 GRAM IVP SCH ×2 (06:00)
[2022-10-01 06:04] LABS: BASOPHILS % (AUTO) 0.5 % (0.2-1.0); HEMATOCRIT 40.2 % (42.0-54.0); HEMOGLOBIN 13.8 g/dL (13.5-18.0); LYMPHOCYTES # (AUTO) 0.7 X10^3/uL (1.3-2.9); LYMPHOCYTES % (AUTO) 6.9 % (21.0-51.0); MEAN CORPUSCULAR HEMOGLOBIN 29.6 pg (27.0-34.0); MEAN CORPUSCULAR HGB CONC 34.3 g/dL (33.0-35.0); MEAN CORPUSCULAR VOLUME 86.3 fL (80.0-100.0); MEAN PLATELET VOLUME 8.3 fL (7.4-11.0); MONOCYTES # (AUTO) 0.5 x10^3/uL (0.3-0.8); MONOCYTES % (AUTO) 4.6 % (0.0-13.0); PLATELET COUNT 264 X10^3/uL (150.0-450.0); RED BLOOD COUNT 4.66 X10^6/uL (4.7-6.0); RED CELL DISTRIBUTION WIDTH 13.5 % (11.6-16.5); WHITE BLOOD COUNT 10.2 X10^3/uL (3.6-10.0)
[2022-10-01 06:15] LABS: ALANINE AMINOTRANSFERASE 42 Units/L (12-78); ALBUMIN 2.3 g/dL (3.4-5.0); ALKALINE PHOSPHATASE 71 Units/L (46-116); ASPARTATE AMINO TRANSFERASE 78 Units/L (15-37); BLOOD UREA NITROGEN 17 mg/dL (7-18); CALCIUM 7.8 mg/dL (8.5-10.1); CARBON DIOXIDE 25.2 mmol/L (21-32); CHLORIDE 103 mmol/L (98-107); COR CA(FOR HYPOALB) 9.2 mg/dL (8.5-10.1); COR NA(FOR HYPERGLY) 139 mmol/L (136-145); CREATININE 0.86 mg/dL (0.70-1.30); GLUCOSE 166 mg/dL (65-99); SODIUM 137 mmol/L (136-145); TOTAL PROTEIN 6.7 g/dL (6.4-8.2); eGFR NON BLACK RACES > 60 (>60)
[2022-10-01 06:22] LABS: POTASSIUM 4.9 mmol/L (3.5-5.1)
[2022-10-01] MEDS ORDERED: ZESTRIL TAB 20 MG ONE (08:24)
--- NOTE | 2022-10-01 08:50 | RAD ---
HISTORYSOB Relevant Clinical InformationSTUDYCHEST, 1 VIEWCOMPARISONNone availableFINDINGSTrachea is midline. Mild cardiomegaly.There is large body habitus with elevation of the diaphragms. No dominant alveolar radiopacities, no pleural effusions or pneumothorax.IMPRESSIONLarge body habitus. Bilateral elevation of the diaphragm with minimal atelectasis.Electronically signed by: Carol Treviño (October 01, 2022 08:49:50)
[2022-10-01] MEDS: PROTONIX TAB 40 MG PO SCH (08:58)
[2022-10-01] MEDS: HYDROCHLOROTHIAZIDE 25 MG TAB PO SCH (08:58)
[2022-10-01] MEDS: ZESTRIL TAB 20 MG PO SCH (08:58)
[2022-10-01] MEDS ORDERED: LOVENOX INJ 40 MG SYR SC SCH (09:00)
[2022-10-01 09:32] VITALS: BP 166/79
--- NOTE | 2022-10-01 10:19 | DR.PROGNOT ---
HOSPITAL PROGRESS NOTE Progress Note for Day of: Progress Note Date: 10/01/22 Chief Complaint Chief Complaint: doing very well , less abdominal pain , tolerating diet well. White count is 10.1. Bilirubin is normal now and other liver enzymes are normal. BUN/creatinine are normal Past Medical Family Social History Past Med/Fam/Surg Hx: No changes since H&P Allergies: Allergies No Known Drug Allergies [NKDA] Allergy (Verified 09/03/22 07:03) Vital Signs Vital Signs: Temperature 97.9 F Pulse Rate [Left Radial] 58 Pulse Rate 79 Respiratory Rate 18 Blood Pressure [Right Arm] 166/79 Blood Pressure 136/61 O2 Sat by Pulse Oximetry 94 Physical Exam GI: Tenderness: Other (Soft abdomen with diffuse tenderness, mild drainage in the CELIO.) Mood Description: Calm Speech Pattern: Clear and Appropriate Laboratory and Diagnostics Result Diagrams: 10/01/22 05:22 10/01/22 05:22 Labs: Laboratory WBC 10.2 X10^3/uL (3.6-10.0) H 10/01/22 05:22 RBC 4.66 X10^6/uL (4.7-6.0) L 10/01/22 05:22 Hgb 13.8 g/dL (13.5-18.0) 10/01/22 05:22 Hct 40.2 % (42.0-54.0) L 10/01/22 05:22 MCV 86.3 fL (80.0-100.0) 10/01/22 05:22 MCH 29.6 pg (27.0-34.0) 10/01/22 05:22 MCHC 34.3 g/dL (33.0-35.0) 10/01/22 05:22 RDW 13.5 % (11.6-16.5) 10/01/22 05:22 Plt Count 264 X10^3/uL (150.0-450.0) 10/01/22 05:22 MPV 8.3 fL (7.4-11.0) 10/01/22 05:22 Neut % (Auto) 88.0 % (42.0-75.0) H 10/01/22 05:22 Lymph % (Auto) 6.9 % (21.0-51.0) L 10/01/22 05:22 [place] % (Auto) 4.6 % (0.0-13.0) 10/01/22 05:22 Eos % (Auto) 0.0 % (0.9-2.9) L 10/01/22 05:22 Baso % (Auto) 0.5 % (0.2-1.0) 10/01/22 05:22 Neut # (Auto) 9.0 x10^3/uL (2.2-4.8) H 10/01/22 05:22 Lymph # (Auto) 0.7 X10^3/uL (1.3-2.9) L 10/01/22 05:22 [place] # (Auto) 0.5 x10^3/uL (0.3-0.8) 10/01/22 05:22 Eos # (Auto) 0.0 x10^3/uL (0.0-0.2) 10/01/22 05:22 Baso # (Auto) 0.0 X10^3/uL (0.0-0.1) 10/01/22 05:22 Absolute Nucleated RBC 0.0 /100WBC 10/01/22 05:22 Sodium 137 mmol/L (136-145) 10/01/22 05:22 Corrected Sodium 139 mmol/L (136-145) 10/01/22 05:22 Potassium 4.9 mmol/L (3.5-5.1) 10/01/22 05:22 Chloride 103 mmol/L (98-107) 10/01/22 05:22 Carbon Dioxide 25.2 mmol/L (21-32) 10/01/22 05:22 BUN 17 mg/dL (7-18) 10/01/22 05:22 Creatinine 0.86 mg/dL (0.70-1.30) 10/01/22 05:22 Est GFR (MDRD) Af Amer > 60 (>60) 10/01/22 05:22 Est GFR (MDRD) Non-Af > 60 (>60) 10/01/22 05:22 Glucose 166 mg/dL (65-99) H 10/01/22 05:22 Calcium 7.8 mg/dL (8.5-10.1) L 10/01/22 05:22 Corrected Calcium 9.2 mg/dL (8.5-10.1) 10/01/22 05:22 Magnesium 2.0 mg/dL (2.0-2.9) 09/30/22 05:18 Total Bilirubin 0.90 mg/dL (0.2-1.0) 10/01/22 05:22 AST 78 Units/L (15-37) H 10/01/22 05:22 ALT 42 Units/L (12-78) 10/01/22 05:22 Alkaline Phosphatase 71 Units/L (46-116) 10/01/22 05:22 Total Protein 6.7 g/dL (6.4-8.2) 10/01/22 05:22 Albumin 2.3 g/dL (3.4-5.0) L 10/01/22 05:22 Globulin 4.4 g/dL (2.5-4.5) 10/01/22 05:22 Albumin/Globulin Ratio 0.5 Ratio (1.1-2.1) L 10/01/22 05:22 Amylase 24 Units/L (25-115) L 09/28/22 11:22 Lipase 40 Units/L (73-393) L 09/28/22 11:22 Specimen Type Clean catch urine 09/28/22 14:15 Urine Color Dark yellow (YELLOW) 09/28/22 14:15 Urine Appearance Mucoid (CLEAR) 09/28/22 14:15 Urine pH 6.0 (5.0 - 8.0) 09/28/22 14:15 Ur Specific [place] 1.020 (1.000-1.030) 09/28/22 14:15 Urine Protein 1+ (NEGATIVE) 09/28/22 14:15 Urine Glucose (UA) Negative (NEGATIVE) 09/28/22 14:15 Urine Ketones 3+ (NEGATIVE) 09/28/22 14:15 Urine Blood 2+ (NEGATIVE) 09/28/22 14:15 Urine Nitrite Negative (NEGATIVE) 09/28/22 14:15 Urine Bilirubin Negative (NEGATIVE) 09/28/22 14:15 Urine Urobilinogen Normal (NORMAL) 09/28/22 14:15 Ur Leukocyte Esterase Negative (NEGATIVE) 09/28/22 14:15 Urine RBC 0-2 /HPF (0-3) 09/28/22 14:15 Urine WBC None seen /HPF (0-5) 09/28/22 14:15 Ur Squamous Epith Cells Rare /HPF (NEGATIVE) 09/28/22 14:15 Urine Bacteria Trace /HPF (NEGATIVE) 09/28/22 14:15 Urine Mucus Numerous /HPF (NEGATIVE) 09/28/22 14:15 Ur Culture Indicated? No/not indicated 09/28/22 14:15 Assessment and Plan 1: Gangrenous calculus cholecystitis, status post laparoscopic cholecystectomy. 2: Low-fat diet, and IV antibiotics. Patient could be discharged home on Cipro 500 mg twice a day and [place] 5 every 4 hours as needed. To follow in 10 days.
== END 2022-10-01 10:20 | disposition home or self-care (01) ==
LOC: MED/SURG
PROVIDERS: ADMIT Internal Medicine; ATTEND Internal Medicine